=== PATIENT | female | born 1975 | race Caucasian/White ===

== ENCOUNTER 2018-12-20 16:19 | Inpatient (IN) ==
[2018-12-20] MEDS ORDERED: SODIUM CHLORIDE 0.9% INJ SCH (18:15)
[2018-12-20] MEDS: ZOFRAN IV PRN (18:53)
[2018-12-20] MEDS: CLINIMIX E 4.25%-5% SOLUTION 1,000 ML IV SCH (18:53)
[2018-12-20] MEDS: PEPCID IV SCH (18:53)
[2018-12-20] MEDS ORDERED: NORCO-10 PO PRN (18:56)
[2018-12-20 19:13] LABS: BASO# 0.07 X1000 (0.0-0.2); BASO% 0.7 % (0.0-0.8); EOS# 0.12 X1000 (0.0-0.7); EOS% 1.2 % (0.0-10.0); HEMATOCRIT 37.5 % (37.0-47.0); HEMOGLOBIN 11.4 g/dL (12.0-16.0); IMM GRAN# 0.03 X1000 (0.0-0.04); IMM GRAN% 0.3 % (0.0-0.5); LYMPH# 2.87 X1000 (1.2-3.4); LYMPH% 27.9 % (20.5-51.1); MCH 24.1 PG (27-31); MCHC 30.4 g/dL (33-37); MCV 79.3 FL (81-99); MONO# 0.53 X1000 (0.11-0.59); MONO% 5.2 % (1.7-9.3); MPV 10.5 FL (7.4-10.4); NEUT# 6.65 X1000 (1.4-6.5); NEUT% 64.7 % (42.2-75.2); PLT 444 X1000 (130-400); RBC 4.73 XMIL (4.2-5.4); RDW 15.1 % (11.5-14.5); WBC 10.27 X1000 (4.8-10.8)
[2018-12-20 19:44] LABS: AGAP 12; ALB/GLOB RATIO 1.2; ALBUMIN 3.7 g/dL (3.5-5.0); ALKALINE PHOSPHATASE 172 U/L (32-104); BUN 5 mg/dL (8-22); CALCIUM 8.5 mg/dL (8.8-10.2); CHLORIDE 104 mmol/L (98-107); COSMO 280; CREATININE 0.5 mg/dL (0.5-0.9); ESTIMATED GFR > 60; GLUCOSE 87 mg/dL (70-104); GOT 15 U/L (10-30); GPT 10 U/L (10-36); POTASSIUM 3.1 mmol/L (3.5-5.1); SODIUM 142 mmol/L (136-145); TCO2 26 mmol/L (25-35); TOTAL BILIRUBIN < 0.15 mg/dL (0.20-1.00); TOTAL PROTEIN 6.8 g/dL (6.3-8.3)
[2018-12-20] MEDS: PHENERGAN PO PRN (20:31)
[2018-12-20] MEDS: AMBIEN PO SCH (20:31)
--- NOTE | 2018-12-20 21:46 | HISTORY AND PHYSICAL ---
CHIEF COMPLAINT: Intractable nausea, abdominal pain. Jejunostomy tube is not working. The fluid is leaking out. Either she was taking the food by mouth or through the jejunostomy contents. HISTORY OF PRESENT ILLNESS: She is a 43-year-old white female came to my office stating that she is losing weight. She had intractable nausea and vomiting with underlying severe peptic ulcer disease. She has been under the care of doctors in [place]. The patient had a jejunostomy tube was placed and sent home on home health care for nutritional status. Unfortunately, the food was coming out from the jejunostomy site and not able to tolerate the diet. She has been hospitalized for further workup of jejunostomy tube and also IV Clinimix. Potassium was low. As a result, a hospital admission was warranted. PAST MEDICAL HISTORY: Depression, chronic pain, kidney stones, vitamin B12 deficiency, refractory duodenal ulcer disease. H pylori was negative. PAST SURGICAL HISTORY: Tonsillectomy, umbilical hernia repair, complete hysterectomy, x1, cholecystectomy, truncal vagotomy pyloroplasty 2014, partial gastrectomy with Billroth II anastomosis by Dr. Urbina and also jejunostomy tube MEDICATIONS: Ambien 10 at bedtime, [place] 10 one tab q.6h as needed, multivitamin 1 tablet daily, Phenergan, Protonix. ALLERGIES: Reported to Benadryl, butorphanol, calcitriol. SOCIAL HISTORY: with 2 kids. 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 Smoking 1 pack a day. No alcohol. FAMILY HISTORY: Father at the age of 50 from type 2 diabetes. Mom is alive at 64 with PDA repair. REVIEW OF SYSTEMS: HEENT: No headache. No vision problem. No earache. No sore throat. Neck: No goiter. No lymphadenopathy. No bruit. Cardiopulmonary: No chest pain, shortness of breath, PND, orthopnea. GI: Leaking of jejunostomy tube, intractable nausea, vomiting, and diarrhea. Not able to gain weight, failure to thrive. : No history of hesitancy, frequency, dysuria. No swelling of legs. No joint pain. Neurologic: No focal symptoms or weakness. EXAMINATION: Vital signs: Temperature is 98 degrees. Vitals are stable. 5 feet. 98 pounds. HEENT: Exam poor dentition. Neck: Supple. Chest: Bilateral air entry. Heart: Sounds are regular. Abdomen: Belly is soft. Multiple scars with jejunostomy tube was noted. Neurologic: No obvious neurological deficits. INVESTIGATIONS: CBC: White cell count 10, hematocrit 37, platelets 444,000. SMA 7: Sodium 142, potassium 3.1, BUN 5, creatinine 0.5, alkaline phosphatase is 172. ASSESSMENT AND PLAN: A 43-year-old white female admitted to the hospital with refractory peptic ulcer disease with multiple surgeries. Currently, undergoing jejunostomy tube for nourishment for failure to thrive is not working. Consult with Desi. IV Clinimix. IV Pepcid. Reconcile home medicines. Replace the potassium. Check the prealbumin levels in the morning. Chronic pain seeking on the [place] under the care of a pain specialist in [place] and we will follow up. cc: Zach Tucker MD MTDD
[2018-12-20] MEDS: POTASSIUM CHLORIDE 20 MEQ/SWI 20 MEQ/100 ML IVPB IV SCH (22:53)
[2018-12-20] MEDS: NICODERM PATCH TD PRN (22:55)
[2018-12-20] MEDS ORDERED: NS 250 ML IV SCH (23:30)
[2018-12-20] MEDS: DILAUDID IV PRN (23:42)
[2018-12-21] MEDS: POTASSIUM CHLORIDE 20 MEQ/SWI 20 MEQ/100 ML IVPB IV SCH (01:19)
[2018-12-21] MEDS: DILAUDID IV PRN ×9 (03:10→23:07)
[2018-12-21] MEDS: PEPCID IV SCH ×2 (05:53→18:35)
[2018-12-21] MEDS: PROTONIX PO SCH (06:07)
--- NOTE | 2018-12-21 09:27 | Diag Imaging Result Doc PS360 ---
EXAM: ABDOMEN FLAT/UPRIGHT 12/21/2018 HISTORY: pain TECHNIQUE: Flat and upright abdomen COMMENT: There is an apparent jejunostomy tube on the left side. There has been extensive gastric surgery and multiple surgical clips are seen in the left upper quadrant. There is also apparently been cholecystectomy. Some gas is present in the rectum. There is no evidence of bowel obstruction. There is no evidence of organomegaly or mass. IMPRESSION: Nonspecific abdomen. Electronically signed by Leobardo Vinson 12/21/2018 9:24 AM
[2018-12-21] MEDS: MULTI-VITAMIN PO SCH (09:28)
[2018-12-21] MEDS: PHENERGAN PO PRN ×3 (09:28→23:07)
[2018-12-21] MEDS: CLINIMIX E 4.25%-5% SOLUTION 1,000 ML IV SCH ×2 (11:39→23:31)
--- NOTE | 2018-12-21 18:35 | PROGRESS NOTE ---
DATE: 12/21/2018 SUBJECTIVE: The patient still has some leaking contents from the jejunostomy site. Pain is adequately controlled. OBJECTIVE: Vital Signs: Temperature is 98. Vitals are stable. Poor dentition. Chest: Clear. Heart: Sounds are regular. Abdomen: Belly is soft and jejunostomy tube was placed. INVESTIGATIONS: Magnesium and phosphate were normal. Potassium 3.1. ASSESSMENT AND PLAN: 1. Refractory gastric ulcer and status post jejunostomy tube. We will ask Desi to look at the wound. 2. Replace the potassium. 3. IV Clinimix. Continue home medications. 4. Nicotine abuse on Nicotrol patch and continue present treatment and check the prealbumin level for nutritional status and followup. LEVEL OF DOCUMENTATION: 25 minutes. cc: Zach Tucker MD
[2018-12-21] MEDS: AMBIEN PO SCH (21:13)
[2018-12-22] MEDS: DILAUDID IV PRN ×10 (01:09→22:30)
[2018-12-22] MEDS: NICODERM PATCH TD PRN (01:09)
[2018-12-22] MEDS: PEPCID IV SCH ×2 (06:18→18:37)
[2018-12-22] MEDS: PROTONIX PO SCH (06:18)
[2018-12-22] MEDS: PHENERGAN PO PRN ×3 (06:20→20:39)
[2018-12-22] MEDS: MULTI-VITAMIN PO SCH (08:30)
[2018-12-22] MEDS: CLINIMIX E 4.25%-5% SOLUTION 1,000 ML IV SCH (13:57)
[2018-12-22] MEDS: AMBIEN PO SCH (20:39)
--- NOTE | 2018-12-22 21:40 | PROGRESS NOTE ---
DATE: 12/22/2018 SUBJECTIVE: The patient wants to eat and waiting for the jejunostomy site to look at by wound care nurse. She is on vacation. REVIEW OF SYSTEMS: None reported. OBJECTIVE: Temperature is 98 degrees, pulse 75. Vitals are stable. Some drainage noted around the jejunostomy site. Labs: Pretty much magnesium phosphate and prealbumin are normal. ASSESSMENT: 1. Refractory peptic ulcer disease. 2. Moderate protein calorie malnutrition by weight. 3. Leakage of the jejunostomy site. PLAN: Waiting for wound care consult. If is not available, we will consult with Dr. Rubio. Continue IV Clinimix. Advance the diet to soft diet. Nicotine patches for smoking and continue on Protonix and IV Pepcid. We will follow up. LEVEL OF DOCUMENTATION: 25 minutes. cc: Zach Tucker MD
[2018-12-23] MEDS: CLINIMIX E 4.25%-5% SOLUTION 1,000 ML IV SCH ×4 (00:33→23:57)
[2018-12-23] MEDS: DILAUDID IV PRN ×10 (00:33→21:12)
[2018-12-23] MEDS: PHENERGAN PO PRN ×4 (02:42→23:56)
[2018-12-23] MEDS: NICODERM PATCH TD PRN (02:42)
[2018-12-23] MEDS: PROTONIX PO SCH (06:20)
[2018-12-23] MEDS: PEPCID IV SCH ×2 (06:20→18:08)
[2018-12-23] MEDS: MULTI-VITAMIN PO SCH (08:39)
--- NOTE | 2018-12-23 19:05 | PROGRESS NOTE ---
DATE: 12/23/2018 SUBJECTIVE: Patient is tolerating the diet very well. Jejunostomy seat looks fine. PHYSICAL EXAMINATION: Vital Signs: Temperature is 97. Vitals are stable. Poor dentition. Chest: Clear. Heart: Sounds are regular. Abdomen: Belly is soft and nontender. No obvious deficits. LABS: Unremarkable. ASSESSMENT AND PLAN: Leakage of jejunostomy tube. Waiting for Desi to look at and she is on vacation. Consult with Dr. Rubio. Continue present treatment. Will follow up. LEVEL OF DOCUMENTATION: 25 minutes. cc: Zach Tucker MD
[2018-12-23] MEDS: AMBIEN PO SCH (21:11)
[2018-12-23] MEDS: ZOFRAN IV PRN (21:14)
[2018-12-24] MEDS: DILAUDID IV PRN ×6 (00:26→12:39)
[2018-12-24] MEDS: CLINIMIX E 4.25%-5% SOLUTION 1,000 ML IV SCH (02:08)
[2018-12-24] MEDS: NICODERM PATCH TD PRN (05:27)
[2018-12-24] MEDS: PEPCID IV SCH (05:30)
[2018-12-24] MEDS: PHENERGAN PO PRN ×2 (06:28→10:28)
[2018-12-24] MEDS: PROTONIX PO SCH (06:28)
[2018-12-24 07:45] VITALS: BP 102/74
[2018-12-24] MEDS ORDERED: THERA M PLUS PO SCH (09:00)
--- NOTE | 2018-12-24 14:50 | PROGRESS NOTE ---
DATE: 12/24/2018 Ms. Thalia Stephens has decreased leakage from around her gastrostomy tube with a different way of dressing it. She has been treated at [facility] for chronic malnutrition. She has had a history of gastric surgery for gastric ulcer. Overall she looks stronger. She has no problems with significant skin breakdown around her gastrostomy site. PLAN: The plan is to send her home, I think this evening. cc: MD Zach Garcia MD
== END 2018-12-24 13:21 | disposition home or self-care (01) | DRG 394 ==
LOC: DIRADM 16:19 → 3N 16:41
PROVIDERS: ADMIT Internal Medicine; ATTEND Internal Medicine
CPT/HCPCS: 74019; 74020; 80053; 83735; 84100; 84134; 85025; A9270; J1170; J2405; J3480; J7050; S0028

== ENCOUNTER 2019-02-16 11:28 | Inpatient (IN) ==
[2019-02-16] MEDS ORDERED: SALINE LOCK IV FLUID XX ONE (15:35)
[2019-02-16] MEDS ORDERED: VANCOMYCIN IV PER PHARMACY MISC SCH (15:45)
[2019-02-16] MEDS: D5 1/2 NS + KCL 40 MEQ 1,000 ML IV SCH (17:00)
[2019-02-16] MEDS: DEMEROL IV PRN ×2 (17:45→22:19)
[2019-02-16] MEDS: PHENERGAN IV PRN (17:45)
[2019-02-16] MEDS: PROTONIX IV SCH (17:45)
[2019-02-16] MEDS ORDERED: VANCOMYCIN 1,700 MG in NS 250 ML IV ONE (18:00)
[2019-02-16] MEDS: AMBIEN PO SCH (20:45)
[2019-02-16] MEDS: NICODERM PATCH TD SCH (20:46)
[2019-02-16] MEDS ORDERED: AMBIEN PO SCH (21:00)
--- NOTE | 2019-02-16 22:43 | HISTORY AND PHYSICAL ---
CHIEF COMPLAINT: Intractable nausea, upper abdominal discharge, redness around the jejunostomy site, dehydration, low potassium. HISTORY OF PRESENT ILLNESS: She is a 43-year-old white female who was seen in the emergency room last night, was sent home with above symptoms. She came to my office that there is a substantial redness around the jejunostomy site with foul-smelling discharge. Potassium is low. Basically, readmitted to the hospital for IV antibiotics, wound culture, IV fluids, pain control. PAST MEDICAL HISTORY: 1. Depression. 2. Chronic pain. 3. Kidney stones. 4. B12 deficiency. 5. Refractory duodenal ulcer disease with H pylori was negative. PAST SURGICAL HISTORY: Tonsillectomy, umbilical hernia repair, complete hysterectomy, 1, cholecystectomy, truncal vagotomy with pyloroplasty, partial gastrectomy with Billroth II anastomosis by Dr. Urbina and jejunostomy tube. MEDICINES: [place] as needed, multivitamin 1 needed, Phenergan, Protonix, Ambien. ALLERGIES: Reported to Benadryl, calcitriol, butorphanol. 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 Smoking 1 pack a day. No alcohol abuse. FAMILY HISTORY: Father at the age of 50 from type 2 diabetes. Mom is alive at 64 with PDA repair. REVIEW OF SYSTEMS: HEENT: No headache. Poor dentition. No earache. No sore throat. Neck: No goiter. No lymphadenopathy. No bruit. Cardiopulmonary: No chest pain, shortness of breath, PND, orthopnea. GI: Upper abdominal pain, redness around the jejunostomy site and not using and foul smelling drainage. No altered bowel habits. No constipation. No bleeding per rectum. : No history of hesitancy, frequency, dysuria. No swelling of legs. Neurological: No neurological symptoms or weakness. PHYSICAL EXAMINATION: VITAL SIGNS: Temperature is 98.1 degrees, pulse 78, blood pressure is 135/100. 5 feet 4 inches. 108 pounds. HEENT: Atraumatic, normocephalic. Pupils equal, reactive to light. TMs are normal. Nose and throat within normal limits. NECK: Supple. No lymphadenopathy. No goiter. CHEST: Bilateral air entry. HEART: Sounds are regular. ABDOMEN: Belly is soft. There is an ostomy site with redness noted. Foul-smelling drainage. EXTREMITIES: No peripheral edema, cyanosis. NEUROLOGIC: No obvious neurological deficits. INVESTIGATIONS: Last night white cell count 9, hematocrit 36, platelets 362,000, MCV is low. PT/INR is normal. Sodium 146, potassium 2.9, BUN 2, creatinine 0.4, glucose 89, glucose 130. Liver function tests were normal. ASSESSMENT AND PLAN: 1. A 43-year-old white male admitted to the hospital with cellulitis around jejunostomy site, foul smelling drainage, most likely staphylococcus. We will use IV vancomycin. Wound cultures. 2. IV fluids. 3. Replace the potassium. 4. Pain control with Demerol. 5. Nicotine abuse. Nicotrol patch. 6. Continue IV Protonix and Phenergan for nausea, Ambien for sleep, B12 replacement and will follow up labs in the morning. cc: Zach Tucker MD
[2019-02-17] MEDS: PHENERGAN IV PRN ×4 (02:19→22:46)
[2019-02-17] MEDS: DEMEROL IV PRN ×6 (02:19→22:46)
[2019-02-17] MEDS: D5 1/2 NS + KCL 40 MEQ 1,000 ML IV SCH ×4 (03:57→22:47)
[2019-02-17 05:02] LABS: BASO# 0.08 X1000 (0.0-0.2); BASO% 1.2 % (0.0-0.8); EOS# 0.28 X1000 (0.0-0.7); EOS% 4.3 % (0.0-10.0); HEMATOCRIT 34.2 % (37.0-47.0); HEMOGLOBIN 10.1 g/dL (12.0-16.0); LYMPH# 2.31 X1000 (1.2-3.4); LYMPH% 35.5 % (20.5-51.1); MCH 23.4 PG (27-31); MCHC 29.5 g/dL (33-37); MCV 79.2 FL (81-99); MONO# 0.71 X1000 (0.11-0.59); MONO% 10.9 % (1.7-9.3); MPV 10.2 FL (7.4-10.4); NEUT# 3.12 X1000 (1.4-6.5); NEUT% 48.1 % (42.2-75.2); PLT 331 X1000 (130-400); RBC 4.32 XMIL (4.2-5.4); RDW 15.9 % (11.5-14.5)
[2019-02-17 05:20] LABS: AGAP 10; BUN 3 mg/dL (8-22); CALCIUM 8.9 mg/dL (8.8-10.2); CHLORIDE 108 mmol/L (98-107); COSMO 282; CREATININE 0.5 mg/dL (0.5-0.9); ESTIMATED GFR > 60; GLUCOSE 109 mg/dL (70-104); POTASSIUM 4.2 mmol/L (3.5-5.1); SODIUM 143 mmol/L (136-145); TCO2 25 mmol/L (25-35)
[2019-02-17] MEDS: CYANOCOBALAMIN IM SCH (09:43)
[2019-02-17] MEDS: NICODERM PATCH TD SCH (09:43)
[2019-02-17] MEDS: PROTONIX IV SCH (16:42)
[2019-02-17] MEDS: AMBIEN PO SCH (20:47)
[2019-02-17] MEDS: VANCOMYCIN 1,350 MG in NS 250 ML IV SCH (20:47)
--- NOTE | 2019-02-17 22:03 | PROGRESS NOTE ---
DATE: 02/17/2019 SUBJECTIVE: Patient is a little better, asking for more pain medicine. Wound culture was not obtained on the jejunostomy side. OBJECTIVE: Vital Signs: Temperature is 98.6 degrees, pulse 68, blood pressure is 143/91. HEENT: Within normal limits. Neck: Supple. No lymphadenopathy. Chest: Bilateral air entry. Heart: Sounds are regular. Abdomen: Redness around the jejunostomy site is doing very well. LABS: Unremarkable. Wound cultures are not done. ASSESSMENT AND PLAN: 1. Cellulitis around the jejunostomy site. Continue intravenous vancomycin. 2. B12 deficiency, on replacement. 3. Continue intravenous fluids. 4. Nicotine abuse. Nicotine patch. 5. Continue intravenous Protonix. 6. If she continues to get better, will discharge in the morning. Will continue followup as an outpatient. LEVEL OF DOCUMENTATION: 25 minutes. cc: Zach Tucker MD
[2019-02-18] MEDS: PHENERGAN IV PRN ×3 (04:56→17:30)
[2019-02-18] MEDS: DEMEROL IV PRN ×5 (04:56→21:43)
[2019-02-18] MEDS: NICODERM PATCH TD SCH (09:22)
[2019-02-18] MEDS: VANCOMYCIN 1,350 MG in NS 250 ML IV SCH ×2 (09:22→19:48)
[2019-02-18] MEDS: CYANOCOBALAMIN IM SCH (09:22)
[2019-02-18] MEDS: D5 1/2 NS + KCL 40 MEQ 1,000 ML IV SCH (13:33)
[2019-02-18] MEDS: SODIUM CHLORIDE 0.9% INJ SCH (15:16)
[2019-02-18] MEDS: PROTONIX IV SCH (15:16)
[2019-02-18] MEDS: LEVAQUIN 500 MG/D5W 500 MG/100 ML IVPB IV SCH (19:47)
[2019-02-18] MEDS: AMBIEN PO SCH (20:14)
--- NOTE | 2019-02-18 22:24 | PROGRESS NOTE ---
DATE: 02/18/2019 SUBJECTIVE: Complains of foul-smelling drainage still coming around the jejunostomy site. The patient is not using. Skin is slightly improving. The redness is better. Wound cultures reported gram-negative rods, and waiting for culture and sensitivity. REVIEW OF SYSTEMS: Nausea. PHYSICAL EXAMINATION: Vital Signs: Temperature is 97, pulse 77. Vitals are stable. HEENT: Poor dentition. Neck: Supple. Chest: Clear. Heart: Sounds are regular. Abdomen: Belly is soft. Cellulitis slowly better. ASSESSMENT AND PLAN: 1. Cellulitis with foul-smelling drainage around the jejunostomy tube, with gram-negative rods. Follow up on culture and sensitivity. Initially started on gram-positive IV vancomycin. We will add Levaquin. 2. B12 deficiency, on replacement. 3. Dehydration. IV fluids with potassium. 4. Chronic nicotine abuse, on Nicotrol patch. 5. Acid reflux disease. IV Protonix. 6. Ambien for sleep, and follow up on the cultures. Discharge over the weekend if she continues to improve. LEVEL OF DOCUMENTATION: 25 minutes. cc: Zach Tucker MD
[2019-02-19] MEDS: PHENERGAN IV PRN ×4 (01:47→20:30)
[2019-02-19] MEDS: SODIUM CHLORIDE 0.9% INJ PRN (01:47)
[2019-02-19] MEDS: DEMEROL IV PRN ×6 (01:47→22:55)
[2019-02-19] MEDS: D5 1/2 NS + KCL 40 MEQ 1,000 ML IV SCH ×2 (04:59→18:20)
[2019-02-19] MEDS: VANCOMYCIN 1,350 MG in NS 250 ML IV SCH (08:49)
[2019-02-19] MEDS: NICODERM PATCH TD SCH (08:50)
[2019-02-19] MEDS: CYANOCOBALAMIN IM SCH (08:50)
--- NOTE | 2019-02-19 13:09 | PROGRESS NOTE ---
DATE: 02/19/2019 SUBJECTIVE: The patient is still having some discharge around the jejunostomy site. The nurses are washing that daily, and the patient is on Levaquin and vancomycin. She complains of pain, not really around the jejunostomy site, but says at home her chronic pain was not in control with [place] 7.5 q.i.d. She is on Demerol IV q.4 hours now. She wants that strengthened. OBJECTIVE: Vital signs: Afebrile, pulse 66, respirations 18, blood pressure 124/78, O2 saturation on room air 100%. Cardiovascular: RRR without murmur. Lungs: Clear. Abdomen: Soft, active bowel sounds. There is some redness around the jejunostomy site of left abdomen with some foul-smelling discharge. Extremities: No calf tenderness, cords or edema. Neurologic: Cranial nerves II through VII are intact. No focal deficits. DIAGNOSTIC DATA: Wound culture growing out Klebsiella ornithinolytica sensitive to Levaquin. ASSESSMENT: 1. Cellulitis around the jejunostomy tube site of left abdomen, Klebsiella growing out. 2. Chronic pain syndrome. 3. B12 deficiency on replacement. 4. Dehydration, resolving. 5. Tobacco abuse. PLAN: For now, I am going to leave her on the Demerol. Dr. Tucker has that ordered, and she can take up the pain control with him when he returns next week. The Demerol should be stronger than the [place] 7.5 she was on. We will continue to cleanse the wound well daily per nursing staff, and we will continue the IV Levaquin while stopping the IV vancomycin. cc: MD Zach Kauffman MD
[2019-02-19] MEDS: SODIUM CHLORIDE 0.9% INJ SCH (18:19)
[2019-02-19] MEDS: PROTONIX IV SCH (18:19)
[2019-02-19] MEDS: LEVAQUIN 500 MG/D5W 500 MG/100 ML IVPB IV SCH (19:37)
[2019-02-19] MEDS: AMBIEN PO SCH (20:30)
[2019-02-20] MEDS: DEMEROL IV PRN ×6 (03:03→23:41)
[2019-02-20] MEDS: PHENERGAN IV PRN ×4 (03:03→21:24)
[2019-02-20] MEDS: CYANOCOBALAMIN IM SCH (09:14)
[2019-02-20] MEDS: SODIUM CHLORIDE 0.9% INJ PRN ×2 (09:14→15:36)
[2019-02-20] MEDS: NICODERM PATCH TD SCH (09:15)
--- NOTE | 2019-02-20 12:36 | PROGRESS NOTE ---
DATE: 02/20/2019 SUBJECTIVE: The patient is stable. Still having some discharge around the jejunostomy site. OBJECTIVE: Afebrile. Vital signs stable. CV: RRR without murmur. Lungs: CTA. Abdomen: Soft, nontender. Still some discharge and redness around the jejunostomy site, left abdomen. Extremities: No calf tenderness, cords, or edema. Neurologic: Cranial nerves are intact. No focal deficits. ASSESSMENT: 1. Cellulitis of left abdomen around the jejunostomy tube site, Klebsiella growing out. 2. Chronic pain syndrome. 3. B12 deficiency, on replacement. 4. Dehydration, resolved. 5. Tobacco abuse. PLAN: Continue Demerol for pain control. Continue IV Levaquin. She is off the vancomycin now. Continue local cleansing of the wound. cc: MD Zach Kauffman MD
[2019-02-20] MEDS: PROTONIX IV SCH (15:35)
[2019-02-20] MEDS: SODIUM CHLORIDE 0.9% INJ SCH (15:35)
[2019-02-20] MEDS: D5 1/2 NS + KCL 40 MEQ 1,000 ML IV SCH ×2 (19:30→19:35)
[2019-02-20] MEDS: LEVAQUIN 500 MG/D5W 500 MG/100 ML IVPB IV SCH (19:35)
[2019-02-20] MEDS: AMBIEN PO SCH (20:22)
[2019-02-21] MEDS: PHENERGAN IV PRN ×4 (03:35→22:15)
[2019-02-21] MEDS: DEMEROL IV PRN ×5 (03:35→20:03)
[2019-02-21] MEDS: CYANOCOBALAMIN IM SCH (08:01)
[2019-02-21] MEDS: NICODERM PATCH TD SCH (08:01)
[2019-02-21] MEDS ORDERED: XYLOCAINE 5% OINT TOP ONE (10:20)
[2019-02-21] MEDS ORDERED: SILVER NITRATE APPLICATOR TOP ONE (10:21)
[2019-02-21] MEDS: SODIUM CHLORIDE 0.9% INJ SCH (15:48)
[2019-02-21] MEDS: PROTONIX IV SCH (15:48)
[2019-02-21] MEDS: AMBIEN PO SCH (20:03)
[2019-02-21] MEDS: LEVAQUIN 500 MG/D5W 500 MG/100 ML IVPB IV SCH (20:03)
[2019-02-21] MEDS: SSD CREAM TOP SCH (22:15)
[2019-02-22] MEDS: DEMEROL IV PRN ×6 (00:07→21:42)
[2019-02-22] MEDS: PHENERGAN IV PRN ×3 (04:20→17:58)
--- NOTE | 2019-02-22 07:04 | PROGRESS NOTE ---
DATE: 02/20/2019 SUBJECTIVE: Interval history was reviewed. The patient has still mucopurulent drainage coming from the jejunostomy site, she also has significant dilation tissue. I did consult with the Desi to cauterize with silver nitrate, still in a lot of pain around the site of the jejunostomy tube. Symptoms are out of proportion, and gaining weight. OBJECTIVE: Vital Signs: Temperature is 98, pulse 98. Vitals are stable. HEENT: Within normal limits. Poor dentition. Neck: Supple. No lymphadenopathy. Chest: Bilateral air entry. Heart: Sounds are regular. Abdomen: Soft, nontender. LABORATORY INVESTIGATIONS: Reported Klebsiella and Staph aureus methicillin sensitive. ASSESSMENT AND PLAN: 1. Localized cellulitis with a wound infection from the jejunostomy site. Wound care consult with silver nitrate. Continue on Levaquin, and she was given before vancomycin, which is stopped. 2. Continue the pain management as per order sheet. 3. Discontinue IV fluids. 4. Nicotrol patch.. We will follow. LEVEL OF DOCUMENTATION: 26 minutes. cc: Zach Tucker MD MTDD
[2019-02-22] MEDS: NICODERM PATCH TD SCH (08:44)
[2019-02-22] MEDS ORDERED: SILVER NITRATE APPLICATOR TOP ONE (10:12)
[2019-02-22] MEDS: SSD CREAM TOP SCH (11:35)
[2019-02-22] MEDS: PROTONIX IV SCH (17:34)
[2019-02-22] MEDS: LEVAQUIN 500 MG/D5W 500 MG/100 ML IVPB IV SCH (20:36)
[2019-02-22] MEDS: AMBIEN PO SCH (20:36)
--- NOTE | 2019-02-22 21:56 | PROGRESS NOTE ---
DATE: 02/22/2019 SUBJECTIVE: Patient still hemostasis purulent drainage. Silver nitrate cautery was done. Appropriate drainage around the jejunostomy site. Patient is eating well and I spoke to the patient. Frankly, she needs to go back to [facility] to remove the tube and further opinion. In the meantime, continue local wound care. OBJECTIVE: Vital Signs: On examination, temperature is 98 degrees. Vitals are stable. HEENT: Exam within normal limits. Poor dentition. Neck: Supple. Chest: Clear to auscultation. Heart: Sounds are regular. Abdomen: Belly is soft. Copious drainage still present. Granulation tissue was cauterized. ASSESSMENT AND PLAN: 1. Cellulitis with localized infection around the jejunostomy site, due to Klebsiella. Continue on intravenous Levaquin. Pain management as directed. Continue sulfadiazine cream along with silver nitrate cauterization as per Wound Care. Will discharge soon and follow up with [facility] surgical associate. 2. Patient is nauseated, increasing Phenergan. 3. Chronic nicotine abuse, on Nicotrol patch. LEVEL OF DOCUMENTATION: 15 minutes. cc: Zach Tucker MD MTDRuss
[2019-02-23] MEDS: SODIUM CHLORIDE 0.9% INJ PRN ×2 (00:05→05:38)
[2019-02-23] MEDS: PHENERGAN IV PRN ×2 (00:05→05:39)
[2019-02-23] MEDS: DEMEROL IV PRN ×3 (01:31→09:31)
[2019-02-23] MEDS: SSD CREAM TOP SCH (08:10)
[2019-02-23] MEDS: NICODERM PATCH TD SCH (08:10)
[2019-02-23 08:50] VITALS: BP 123/90
== END 2019-02-23 11:30 | disposition home or self-care (01) | DRG 394 ==
LOC: DIRADM 11:28 → EDIPHOLD 12:36 → 1N 18:10
PROVIDERS: ADMIT Internal Medicine; ATTEND Internal Medicine